=== PATIENT | male | born 1990 | race Caucasian/White ===

== ENCOUNTER 2022-07-28 09:19 | Outpatient (CLI) | payer BC ==
[2022-07-28 10:02] LABS: #Basophils 0.1 10x3/uL (0.0-0.2); #Eosinphils 0.2 10x3/uL (0.0-0.5); #Monocytes 0.4 10x3/uL (0.0-1.1); #Neutrophils 4.5 10x3/uL (1.5-8.4); %Basophils 0.8 % (0.0-2.0); %Eosinophils 3.5 % (0.0-6.0); %Lymphocytes 17.5 % (18.0-47.0); %Monocytes 6.8 % (0.0-10.0); %Neutrophils 71.2 % (40.0-75.0); Mean Corpuscular HGB CONC 33.6 g/dL (32.0-36.0); Mean Corpuscular Hemoglobin 30.1 pg (27.0-33.0); Mean Corpuscular Volume 89.5 fl (81.2-95.1); Mean Platelet Volume 10.2 fl (7.4-10.4); Platelet Count 223 10x3/uL (150-450); RBC Distribution Width 11.9 % (11.5-14.5); Red Blood Cell (RBC) Count 5.32 10x6/uL (4.32-5.72); White Blood Cell (WBC) Count 6.3 10x3/uL (3.5-10.5)
== END 2022-07-28 09:20 | disposition home or self-care (01) ==
LOC: LABBT 09:19
PROVIDERS: ATTEND Surgery
DX: Z01.812 Encounter for preprocedural laboratory examination (principal); K40.90 Unilateral inguinal hernia, without obstruction or gangrene, not specified as recurrent
CPT/HCPCS: 85025

== ENCOUNTER 2022-07-30 08:41 | Day surgery (SDC) | payer BC ==
[2022-07-28 16:06] VITALS: BMI 24.2
[2022-07-30] MEDS ORDERED: Sodium Chloride 0.9% 100 ML ONE (10:45)
[2022-07-30] MEDS ORDERED: CEFAZOLIN 2 GM VIAL ONE (10:45)
[2022-07-30] MEDS ORDERED: Lidocaine 1% MPF 2 ML VIAL ONE (10:45)
[2022-07-30] MEDS ORDERED: Bupivacaine/Epinephrine 0.25% 30 ML VIAL ONE (12:25)
[2022-07-30] MEDS ORDERED: Dexmedetomidine 200 MCG/2 ML VIAL ONE (12:32)
[2022-07-30] MEDS ORDERED: Midazolam HCl 2 mg/2 ml Vial ONE (12:32)
[2022-07-30] MEDS ORDERED: SUGAMMADEX SODIUM 200 MG/2 ML VIAL ONE (12:32)
[2022-07-30] MEDS ORDERED: Fentanyl 250 MCG/5 ML VIAL ONE (12:32)
[2022-07-30] MEDS ORDERED: GLYCOPYRROLATE/PF 0.2 MG/ML VIAL ONE (12:42)
[2022-07-30] MEDS ORDERED: Rocuronium Bromide 10 MG/ML (10ML VIAL) ONE (12:42)
[2022-07-30] MEDS ORDERED: Ondansetron PF 4 MG/2 ML Vial ONE (12:42)
[2022-07-30] MEDS ORDERED: PROPOFOL 200 MG/20 ML VIAL ONE (12:42)
[2022-07-30] MEDS ORDERED: Dexamethasone 20 MG/5 ML VIAL ONE (12:42)
[2022-07-30] MEDS ORDERED: NEOSTIGMINE 3 MG/3 ML SYR 3 MG/3 ML SYRINGE ONE (12:42)
[2022-07-30] MEDS ORDERED: fentaNYL 50 mcg/mL 1 mL Vial ONE (14:09)
[2022-07-30] MEDS ORDERED: HYDROcodone/Acetaminophen 5/325 mg Tablet ONE (14:56)
== END 2022-07-30 15:25 | disposition home or self-care (01) ==
LOC: SDC 08:41
PROVIDERS: ATTEND Surgery
PROC: 0YU64JZ Supplement Left Inguinal Region with Synthetic Substitute, Percutaneous Endoscopic Approach (ICD-10-PCS; principal; 2022-07-30)
DX: K40.90 Unilateral inguinal hernia, without obstruction or gangrene, not specified as recurrent (principal); F17.290 Nicotine dependence, other tobacco product, uncomplicated
CPT/HCPCS: C1781; J1100; J2250; J2405; J2704; J3010; J3490